=== PATIENT | female | born 1975 | race Caucasian/White ===

== ENCOUNTER 2017-11-08 10:53 | Inpatient (IN) | payer MEDICAID, OTHER ==
[~2017-11-08] VITALS: Ht 160 cm; Wt 68.5 kg
[~2017-11-08 10:53] MED LIST: ARIP2 PO; FLUO-191 PO; HALO5 PO
[2017-11-08] MEDS ORDERED: HALOPERIDOL LACTATE 5 MG/ML VIAL IM ONE (11:15)
[2017-11-08] MEDS ORDERED: LORazepam 2 MG/ML VIAL IM ONE (11:15)
[2017-11-08 11:34] LABS: ANION GAP 7 mmol/L (8-16); CALCIUM, TOTAL 9.3 mg/dL (8.8-10.5); CARBON DIOXIDE 28 mmol/L (22-29); CHLORIDE 102 mmol/L (98-107); CREATININE 0.88 mg/dL (0.60-1.30); GLOMERULAR FILTR. RATE CALC > 60 mL/min (>60); GLUCOSE,RANDOM 112 mg/dL (70-110); POTASSIUM 4.5 mmol/L (3.5-5.1); SODIUM SERUM 137 mmol/L (136-145); UREA NITROGEN, BLOOD 11 mg/dL (7-18)
[2017-11-08 11:41] LABS: ALANINE AMINOTRANSFERASE 29 U/L (12-78); ALBUMIN 3.9 g/dL (3.4-5.0); ALKALINE PHOSPHATASE 85 U/L (46-116); ASPARTATE AMINOTRANSFERASE 25 U/L (15-37); BILIRUBIN,TOTAL 0.1 mg/dL (0.1-1.0); TOTAL PROTEIN, SERUM 7.9 g/dL (6.4-8.2)
[2017-11-08 11:57] LABS: BASOPHILS % (AUTO) 0.4 % (0.0-2.0); HEMATOCRIT 38.4 % (36-46); HEMOGLOBIN 12.8 g/dL (12.0-16.0); LYMPHOCYTES % (AUTO) 20.6 % (22.0-44.0); MEAN CORPUSCULAR HEMOGLOBIN 27.9 pg (26.0-34.0); MEAN CORPUSCULAR HGB CONC 33.3 G/dL (31.0-37.0); MEAN CORPUSCULAR VOLUME 84 fL (80-100); MONOCYTES # (AUTO) 0.4 K/uL (0.1-1.0); MONOCYTES % (AUTO) 4.4 % (2.0-9.0); NEUTROPHILS # (AUTO) 7.1 K/uL (1.8-7.7); NEUTROPHILS % (AUTO) 73.6 % (40.0-70.0); PLATELET COUNT (AUTO) 328 K/uL (150-450); RED CELL DISTRIBUTION WIDTH 14.5 % (11.5-14.5)
[2017-11-08] MEDS ORDERED: HALOPERIDOL 5 MG TABLET PO PRN (12:30)
[2017-11-08] MEDS ORDERED: ZOLPIDEM TARTRATE 10 MG TABLET PO PRN (12:30)
[2017-11-08] MEDS ORDERED: IBUPROFEN 400 MG TABLET PO PRN (15:45)
[2017-11-08] MEDS ORDERED: ACETAMINOPHEN 325 MG TABLET PO PRN (15:45)
[2017-11-08 16:25] VITALS: BP 127/60
[2017-11-09 00:05] VITALS: BP 102/61
[2017-11-09 08:27] VITALS: BP 109/69
[2017-11-09 08:33] LABS: CHOL/HDL RATIO 2.3 (3.9-5.7); THYROID STIMULATING HORMONE 0.69 uIU/mL (0.36-3.74)
[2017-11-09] MEDS ORDERED: NICOTINE 21 MG/24 HOUR PATCH TD SCH (09:00)
[2017-11-09] MEDS ORDERED: ARIPiprazole 2 MG TABLET PO SCH (09:00)
[2017-11-09] MEDS: HALOPERIDOL 5 MG TABLET PO SCH (09:13)
[2017-11-09] MEDS: FLUoxetine HCL 20 MG CAPSULE PO SCH ×2 (09:13→16:17)
[2017-11-09] MEDS: ARIPiprazole 5 MG TABLET PO SCH (14:10)
[2017-11-09 16:20] VITALS: BP 112/80
[2017-11-10] MEDS: HALOPERIDOL 5 MG TABLET PO SCH (08:32)
[2017-11-10] MEDS: FLUoxetine HCL 20 MG CAPSULE PO SCH ×2 (08:32→16:49)
[2017-11-10] MEDS: ARIPiprazole 5 MG TABLET PO SCH (08:32)
[2017-11-10 09:40] VITALS: BP 101/62
[2017-11-10 16:57] VITALS: BP 110/65
[2017-11-11 06:49] VITALS: BP 121/68
[2017-11-11 08:58] VITALS: BP 115/70
[2017-11-11] MEDS: FLUoxetine HCL 20 MG CAPSULE PO SCH ×2 (09:56→16:37)
[2017-11-11] MEDS: HALOPERIDOL 5 MG TABLET PO SCH (09:56)
[2017-11-11] MEDS: ARIPiprazole 5 MG TABLET PO SCH (09:56)
[2017-11-11 18:25] VITALS: BP 107/76
[2017-11-12 06:34] VITALS: BP 100/56
[2017-11-12] MEDS: FLUoxetine HCL 20 MG CAPSULE PO SCH ×2 (09:26→16:49)
[2017-11-12] MEDS: ARIPiprazole 5 MG TABLET PO SCH (09:26)
[2017-11-12] MEDS: HALOPERIDOL 5 MG TABLET PO SCH (09:26)
[2017-11-12] MEDS ORDERED: DiphenhydrAMINE HCL 50 MG/ML VIAL IM ONE (09:45)
[2017-11-12] MEDS: BENZTROPINE MESYLATE 2 MG TABLET PO SCH ×2 (10:12→16:49)
[2017-11-12] MEDS: LORazepam 2 MG TABLET PO PRN (15:05)
[2017-11-12 17:47] VITALS: BP 102/67
[2017-11-13 06:25] VITALS: BP 113/56
[2017-11-13 08:02] VITALS: BP 110/61
[2017-11-13] MEDS: HALOPERIDOL 5 MG TABLET PO SCH (09:16)
[2017-11-13] MEDS: ARIPiprazole 5 MG TABLET PO SCH (09:17)
[2017-11-13] MEDS: FLUoxetine HCL 20 MG CAPSULE PO SCH ×2 (09:17→16:07)
[2017-11-13] MEDS: BENZTROPINE MESYLATE 2 MG TABLET PO SCH ×2 (09:17→16:07)
[2017-11-13] MEDS: LORazepam 2 MG TABLET PO PRN (09:31)
[2017-11-13 16:31] VITALS: BP 105/74
[2017-11-14] MEDS: LORazepam 2 MG TABLET PO PRN ×2 (00:30→09:35)
[2017-11-14] MEDS: HALOPERIDOL 5 MG TABLET PO SCH ×2 (00:30→09:34)
[2017-11-14 06:35] VITALS: BP 102/72
[2017-11-14] MEDS: ARIPiprazole 5 MG TABLET PO SCH (08:25)
[2017-11-14] MEDS: FLUoxetine HCL 20 MG CAPSULE PO SCH ×2 (08:25→17:51)
[2017-11-14] MEDS: BENZTROPINE MESYLATE 2 MG TABLET PO SCH ×2 (08:25→17:50)
[2017-11-14 08:40] VITALS: BP 109/66
[2017-11-14 16:00] VITALS: BP 119/82
[2017-11-14] MEDS ORDERED: DiphenhydrAMINE HCL 50 MG/ML VIAL ONE (18:26)
[2017-11-14] MEDS ORDERED: HALOPERIDOL LACTATE 5 MG/ML VIAL ONE (18:26)
[2017-11-14] MEDS ORDERED: LORazepam 2 MG/ML VIAL ONE (18:26)
[2017-11-14] MEDS ORDERED: LORazepam 2 MG/ML VIAL IM ONE (18:45)
[2017-11-14] MEDS ORDERED: DiphenhydrAMINE HCL 50 MG/ML VIAL IM ONE (18:45)
[2017-11-14] MEDS ORDERED: HALOPERIDOL LACTATE 5 MG/ML VIAL IM ONE (18:45)
[2017-11-14 19:40] VITALS: BP 111/77
[2017-11-15 06:45] VITALS: BP 106/68
[2017-11-15 08:42] VITALS: BP 105/64
[2017-11-15] MEDS ORDERED: BACITRACIN 28.4 GM OINTMENT TP SCH (09:00)
[2017-11-15] MEDS: ARIPiprazole 5 MG TABLET PO SCH (09:38)
[2017-11-15] MEDS: BENZTROPINE MESYLATE 2 MG TABLET PO SCH (09:38)
[2017-11-15] MEDS: FLUoxetine HCL 20 MG CAPSULE PO SCH (09:39)
[2017-11-15] MEDS ORDERED: FLUO-191 PO (11:05)
[2017-11-15] MEDS ORDERED: BENZ2TAB10 PO (11:05)
[2017-11-15] MEDS ORDERED: ARIP5TAB8 PO (11:05)
[2017-11-15] MEDS ORDERED: HALO5 PO (11:06)
== END 2017-11-15 13:00 | disposition home or self-care (01) | DRG 750 ==
LOC: EMS 10:55 → B2S 14:39 → B3A 11-14 17:28
PROVIDERS: ADMIT Psychiatry & Neurology Psychiatry; ATTEND Psychiatry & Neurology Psychiatry
DX: F20.0 Paranoid schizophrenia (principal); R45.851 Suicidal ideations; Z91.14 Patient's other noncompliance with medication regimen; I10 Essential (primary) hypertension; F32.9 Major depressive disorder, single episode, unspecified; F10.10 Alcohol abuse, uncomplicated; F19.10 Other psychoactive substance abuse, uncomplicated; R00.0 Tachycardia, unspecified; F15.90 Other stimulant use, unspecified, uncomplicated; Z79.899 Other long term (current) drug therapy; Z88.6 Allergy status to analgesic agent; Z88.2 Allergy status to sulfonamides; Z88.0 Allergy status to penicillin; Z87.442 Personal history of urinary calculi; Z71.41 Alcohol abuse counseling and surveillance of alcoholic; Z71.51 Drug abuse counseling and surveillance of drug abuser
CPT/HCPCS: 84443; 96372; 99285; G0480; J1200; J1630; J2060

== ENCOUNTER 2017-11-12 11:31 | Emergency (ER) | payer MEDICAID, OTHER ==
[~2017-11-12] VITALS: Ht 165.1 cm; Wt 59.1 kg
[2017-11-12 11:45] VITALS: BP 108/53
[2017-11-12] MEDS ORDERED: TraMADol HCL 50 MG TABLET PO ONE (12:30)
[2017-11-12] MEDS ORDERED: KETOROLAC TROMETHAMINE 60 MG/2 ML VIAL IM ONE (12:30)
== END 2017-11-12 13:42 | disposition home or self-care (01) ==
LOC: EMS 11:32
DX: R07.89 Other chest pain (principal); F20.9 Schizophrenia, unspecified; F32.9 Major depressive disorder, single episode, unspecified; F17.210 Nicotine dependence, cigarettes, uncomplicated; Z87.442 Personal history of urinary calculi; Z88.0 Allergy status to penicillin; Z88.2 Allergy status to sulfonamides; Z88.5 Allergy status to narcotic agent; Z79.899 Other long term (current) drug therapy; Z71.6 Tobacco abuse counseling
CPT/HCPCS: 93005; 96372; 99283; 99406; J1885

== ENCOUNTER 2018-01-20 20:32 | Emergency (ER) | payer OTHER ==
[~2018-01-20] VITALS: Ht 157.5 cm; Wt 50.0 kg
[~2018-01-20 20:32] MED LIST changes: -ARIP2 PO; +ARIP5TAB8 PO; +BENZ2TAB10 PO; -HALO5 PO; +HALO5TAB2 PO
[2018-01-20] MEDS ORDERED: ZIPR20CA2 PO (23:24)
[2018-01-21 02:21] LABS: BASOPHILS % (AUTO) 0.5 % (0.0-2.0); EOSINOPHILS % (AUTO) 1.8 % (1.0-6.0); HEMATOCRIT 38.1 % (36-46); HEMOGLOBIN 12.7 g/dL (12.0-16.0); LYMPHOCYTES % (AUTO) 35.9 % (22.0-44.0); MEAN CORPUSCULAR HGB CONC 33.5 G/dL (31.0-37.0); MEAN CORPUSCULAR VOLUME 84 fL (80-100); MONOCYTES # (AUTO) 0.3 K/uL (0.1-1.0); MONOCYTES % (AUTO) 4.1 % (2.0-9.0); NEUTROPHILS # (AUTO) 4.8 K/uL (1.8-7.7); NEUTROPHILS % (AUTO) 57.7 % (40.0-70.0); PLATELET COUNT (AUTO) 305 K/uL (150-450); RED BLOOD CELL COUNT(AUTO) 4.54 MIL/uL (4.00-5.20); RED CELL DISTRIBUTION WIDTH 14.6 % (11.5-14.5)
[2018-01-21 02:29] LABS: ANION GAP 7 mmol/L (8-16); CALCIUM, TOTAL 8.9 mg/dL (8.8-10.5); CARBON DIOXIDE 28 mmol/L (22-29); CHLORIDE 104 mmol/L (98-107); CREATININE 0.91 mg/dL (0.60-1.30); GLOMERULAR FILTR. RATE CALC > 60 mL/min (>60); GLUCOSE,RANDOM 99 mg/dL (70-110); POTASSIUM 4.4 mmol/L (3.5-5.1); SODIUM SERUM 139 mmol/L (136-145); UREA NITROGEN, BLOOD 9 mg/dL (7-18)
[2018-01-21 02:35] LABS: ALANINE AMINOTRANSFERASE 31 U/L (12-78); ALBUMIN 3.6 g/dL (3.4-5.0); ALKALINE PHOSPHATASE 83 U/L (46-116); ASPARTATE AMINOTRANSFERASE 24 U/L (15-37); BILIRUBIN,TOTAL 0.3 mg/dL (0.1-1.0)
[2018-01-21] MEDS ORDERED: LORazepam 2 MG TABLET PO ONE (03:15)
[2018-01-21 04:19] VITALS: BP 109/66
== END 2018-01-21 04:22 | disposition home or self-care (01) ==
LOC: EMS 20:32
DX: F32.9 Major depressive disorder, single episode, unspecified (principal); F41.9 Anxiety disorder, unspecified; F20.9 Schizophrenia, unspecified; F12.90 Cannabis use, unspecified, uncomplicated; F19.90 Other psychoactive substance use, unspecified, uncomplicated; Z87.891 Personal history of nicotine dependence; Z88.0 Allergy status to penicillin; Z88.2 Allergy status to sulfonamides; Z88.5 Allergy status to narcotic agent
CPT/HCPCS: 80053; 85025; 99284; G0480

== ENCOUNTER 2018-02-16 01:32 | Inpatient (IN) | payer MEDICAID, OTHER ==
[~2018-02-16] VITALS: Ht 152.4 cm; Wt 63.6 kg
[~2018-02-16 01:32] MED LIST changes: -BENZ2TAB10 PO; +GABA-529 PO; -HALO5TAB2 PO
[2018-02-16] MEDS ORDERED: LORazepam 2 MG/ML VIAL ONE (02:20)
[2018-02-16] MEDS ORDERED: DiphenhydrAMINE HCL 50 MG/ML VIAL ONE (02:20)
[2018-02-16] MEDS ORDERED: HALOPERIDOL LACTATE 5 MG/ML VIAL ONE (02:20)
[2018-02-16 02:23] LABS: AMPHET/METH SCREEN,URINE POSITIVE (NEGATIVE); BARBITURATE SCREEN, URINE NEGATIVE (NEGATIVE); BENZODIAZEPINES SCREEN,URINE NEGATIVE (NEGATIVE); CANNABINOID SCREEN,URINE NEGATIVE (NEGATIVE); COCAINE SCREEN,URINE NEGATIVE (NEGATIVE); METHADONE SCREEN, URINE NEGATIVE (NEGATIVE); OPIATE SCREEN,URINE NEGATIVE (NEGATIVE); PHENCYCLIDINE SCREEN,URINE NEGATIVE (NEGATIVE)
[2018-02-16] MEDS ORDERED: HALOPERIDOL LACTATE 5 MG/ML VIAL IM ONE (02:30)
[2018-02-16] MEDS ORDERED: LORazepam 2 MG/ML VIAL IM ONE (02:30)
[2018-02-16] MEDS ORDERED: DiphenhydrAMINE HCL 50 MG/ML VIAL IM ONE (02:30)
[2018-02-16] MEDS ORDERED: ZOLPIDEM TARTRATE 10 MG TABLET PO PRN (03:15)
[2018-02-16] MEDS ORDERED: HALOPERIDOL 5 MG TABLET PO PRN (03:15)
[2018-02-16 04:27] LABS: BASOPHILS % (AUTO) 0.5 % (0.0-2.0); EOSINOPHILS % (AUTO) 0.9 % (1.0-6.0); HEMATOCRIT 34.9 % (36-46); HEMOGLOBIN 11.8 g/dL (12.0-16.0); LYMPHOCYTES # (AUTO) 1.6 K/uL (1.0-4.8); LYMPHOCYTES % (AUTO) 17.1 % (22.0-44.0); MEAN CORPUSCULAR HEMOGLOBIN 28.6 pg (26.0-34.0); MEAN CORPUSCULAR HGB CONC 33.9 G/dL (31.0-37.0); MEAN CORPUSCULAR VOLUME 85 fL (80-100); MONOCYTES # (AUTO) 0.4 K/uL (0.1-1.0); MONOCYTES % (AUTO) 4.8 % (2.0-9.0); NEUTROPHILS # (AUTO) 7.2 K/uL (1.8-7.7); NEUTROPHILS % (AUTO) 76.7 % (40.0-70.0); PLATELET COUNT (AUTO) 276 K/uL (150-450); RED BLOOD CELL COUNT(AUTO) 4.13 MIL/uL (4.00-5.20); RED CELL DISTRIBUTION WIDTH 14.5 % (11.5-14.5)
[2018-02-16 04:39] LABS: ANION GAP 9 mmol/L (8-16); CALCIUM, TOTAL 8.4 mg/dL (8.8-10.5); CARBON DIOXIDE 26 mmol/L (22-29); CHLORIDE 106 mmol/L (98-107); CREATININE 0.89 mg/dL (0.60-1.30); GLOMERULAR FILTR. RATE CALC > 60 mL/min (>60); GLUCOSE,RANDOM 98 mg/dL (70-110); POTASSIUM 3.2 mmol/L (3.5-5.1); SODIUM SERUM 141 mmol/L (136-145); UREA NITROGEN, BLOOD 12 mg/dL (7-18)
[2018-02-16 04:45] LABS: ALANINE AMINOTRANSFERASE 27 U/L (12-78); ALBUMIN 3.3 g/dL (3.4-5.0); ALKALINE PHOSPHATASE 86 U/L (46-116); ASPARTATE AMINOTRANSFERASE 29 U/L (15-37); BILIRUBIN,TOTAL 0.1 mg/dL (0.1-1.0); TOTAL PROTEIN, SERUM 6.3 g/dL (6.4-8.2)
[2018-02-16] MEDS ORDERED: POTASSIUM CHLORIDE 10% 40 MEQ/30 ML LIQUID UDCUP PO ONE (04:45)
[2018-02-16 07:00] VITALS: BP 109/67
[2018-02-16] MEDS ORDERED: NICOTINE 14 MG/24 HOUR PATCH TD PRN (07:30)
[2018-02-16] MEDS ORDERED: MAGNESIUM HYDROXIDE SUSPENSION 30 ML UDCUP PO PRN (07:30)
[2018-02-16] MEDS ORDERED: ACETAMINOPHEN 325 MG TABLET PO PRN (07:30)
[2018-02-16] MEDS ORDERED: ONDANSETRON HCL 4 MG TABLET PO PRN (07:30)
[2018-02-16] MEDS ORDERED: PETROLATUM,WHITE 71 GM JELLY TP PRN (07:30)
[2018-02-16] MEDS ORDERED: LOPERAMIDE HCL 2 MG CAPSULE PO PRN (07:30)
[2018-02-16] MEDS ORDERED: ALBUTEROL SULFATE HFA 90 MCG/PUFF 8 GM INHALER IH PRN (07:30)
[2018-02-16] MEDS ORDERED: DOCUSATE SODIUM 100 MG CAPSULE PO PRN (07:30)
[2018-02-16] MEDS ORDERED: CloNIDine HCL 0.1 MG TABLET PO PRN (07:30)
[2018-02-16] MEDS ORDERED: MAG HYDROX/AL HYDROX/SIMETH ES 30 ML SUSPENSION UDCUP PO PRN (07:30)
[2018-02-16] MEDS ORDERED: IBUPROFEN 400 MG TABLET PO PRN (07:30)
[2018-02-16] MEDS ORDERED: GuaiFENesin/D-METHORPHAN [SUGAR-FREE] 200-20MG/10 ML SYRUP UDCUP PO PRN (07:30)
[2018-02-16 08:25] VITALS: BP 102/50
[2018-02-16] MEDS ORDERED: FLUO-191 PO (08:58)
[2018-02-16] MEDS ORDERED: QUEtiapine FUMARATE 100 MG TABLET PO PRN (09:00)
[2018-02-16] MEDS: ARIPiprazole 5 MG TABLET PO SCH (09:29)
[2018-02-16] MEDS: FLUoxetine HCL 20 MG CAPSULE PO SCH (09:29)
[2018-02-16] MEDS: FERROUS SULFATE 325 MG EC TABLET PO SCH ×2 (12:28→16:36)
[2018-02-16 16:35] VITALS: BP 108/66
[2018-02-16] MEDS ORDERED: GABAPENTIN 100 MG CAPSULE PO SCH (21:00)
[2018-02-17] MEDS: FERROUS SULFATE 325 MG EC TABLET PO SCH ×3 (06:40→16:19)
[2018-02-17 07:14] VITALS: BP 110/78
[2018-02-17 08:42] VITALS: BP 111/60
[2018-02-17] MEDS: GABAPENTIN 100 MG CAPSULE PO SCH ×3 (09:09→20:23)
[2018-02-17] MEDS: ARIPiprazole 5 MG TABLET PO SCH (09:09)
[2018-02-17] MEDS: FLUoxetine HCL 20 MG CAPSULE PO SCH (09:09)
[2018-02-17 16:35] VITALS: BP 119/67
[2018-02-18] MEDS: FERROUS SULFATE 325 MG EC TABLET PO SCH ×3 (06:39→16:57)
[2018-02-18 06:47] VITALS: BP 105/62
[2018-02-18 08:22] VITALS: BP 100/57
[2018-02-18] MEDS: GABAPENTIN 100 MG CAPSULE PO SCH ×3 (08:45→20:12)
[2018-02-18] MEDS: ARIPiprazole 5 MG TABLET PO SCH (08:45)
[2018-02-18] MEDS: FLUoxetine HCL 20 MG CAPSULE PO SCH (08:45)
[2018-02-18] MEDS ORDERED: POTASSIUM CHLORIDE 20 MEQ ER TABLET PO ONE (10:15)
[2018-02-18] MEDS: LORazepam 2 MG TABLET PO PRN (12:05)
[2018-02-18 16:27] VITALS: BP 111/62
[2018-02-19 00:15] VITALS: BP 120/72
[2018-02-19] MEDS: FERROUS SULFATE 325 MG EC TABLET PO SCH ×3 (06:38→16:21)
[2018-02-19 08:10] VITALS: BP 132/79
[2018-02-19] MEDS: GABAPENTIN 100 MG CAPSULE PO SCH ×3 (08:41→20:08)
[2018-02-19] MEDS: FLUoxetine HCL 20 MG CAPSULE PO SCH (08:42)
[2018-02-19] MEDS: ARIPiprazole 5 MG TABLET PO SCH (08:42)
[2018-02-19 08:54] LABS: HEMOGLOBIN A1C 5.1 % (4.5-6.2)
[2018-02-19 09:11] LABS: THYROID STIMULATING HORMONE 0.47 uIU/mL (0.36-3.74)
[2018-02-19 09:23] LABS: CHOL/HDL RATIO 3.3 (3.9-5.7)
[2018-02-19] MEDS: LORazepam 2 MG TABLET PO PRN (14:18)
[2018-02-19 16:00] VITALS: BP 100/60
[2018-02-20 06:49] VITALS: BP 108/75
[2018-02-20] MEDS: FERROUS SULFATE 325 MG EC TABLET PO SCH ×2 (06:58→12:13)
[2018-02-20] MEDS: GABAPENTIN 100 MG CAPSULE PO SCH (08:19)
[2018-02-20] MEDS: ARIPiprazole 5 MG TABLET PO SCH (08:19)
[2018-02-20] MEDS: FLUoxetine HCL 20 MG CAPSULE PO SCH (08:20)
[2018-02-20 08:21] VITALS: BP 126/69
[2018-02-20] MEDS ORDERED: FERR-89 PO (08:35)
[2018-02-20] MEDS ORDERED: GABA-529 PO (08:35)
== END 2018-02-20 13:15 | disposition home or self-care (01) | DRG 750 ==
LOC: EMS 01:32 → B3A 05:30
PROVIDERS: ADMIT Psychiatry & Neurology Psychiatry
DX: F25.1 Schizoaffective disorder, depressive type (principal); R45.851 Suicidal ideations; F15.20 Other stimulant dependence, uncomplicated; E87.6 Hypokalemia; D64.9 Anemia, unspecified; F17.210 Nicotine dependence, cigarettes, uncomplicated; F41.9 Anxiety disorder, unspecified; Z78.1 Physical restraint status; Z79.899 Other long term (current) drug therapy; Z87.442 Personal history of urinary calculi; Z88.6 Allergy status to analgesic agent; Z88.0 Allergy status to penicillin; Z88.2 Allergy status to sulfonamides
CPT/HCPCS: 83036; 84132; 84443; 87081; 96372; 99291; 99406; G0480; J1200; J1630; J2060

== ENCOUNTER 2023-03-28 05:17 | Emergency (ER) | payer MEDICAID, OTHER ==
[~2023-03-28] VITALS: Ht 154.9 cm; Wt 68.2 kg
[~2023-03-28 05:17] MED LIST changes: +ARIP5TAB37 PO; -ARIP5TAB8 PO; +FERR325T27 PO; +FLUO-177 PO; -FLUO-191 PO; +GABA-1216 PO; -GABA-529 PO
[2023-03-28] MEDS ORDERED: GABAPENTIN 300 MG CAPSULE PO ONE (05:30)
[2023-03-28] MEDS ORDERED: HydrOXYzine PAMOATE 25 MG CAPSULE PO ONE (05:30)
[2023-03-28 05:56] LABS: BASOPHILS % (AUTO) 0.4 % (0.0-2.0); EOSINOPHILS % (AUTO) 2.7 % (1.0-6.0); HEMOGLOBIN 11.8 g/dL (12.0-16.0); LYMPHOCYTES # (AUTO) 2.4 K/uL (1.0-4.8); LYMPHOCYTES % (AUTO) 24.9 % (22.0-44.0); MEAN CORPUSCULAR HEMOGLOBIN 27.7 pg (26.0-34.0); MEAN CORPUSCULAR HGB CONC 32.7 G/dL (31.0-37.0); MEAN CORPUSCULAR VOLUME 85 fL (80-100); MONOCYTES # (AUTO) 0.5 K/uL (0.1-1.0); MONOCYTES % (AUTO) 5.4 % (2.0-9.0); NEUTROPHILS # (AUTO) 6.3 K/uL (1.8-7.7); NEUTROPHILS % (AUTO) 66.6 % (40.0-70.0); PLATELET COUNT (AUTO) 319 K/uL (150-450); RED BLOOD CELL COUNT(AUTO) 4.26 MIL/uL (4.00-5.20); RED CELL DISTRIBUTION WIDTH 15.6 % (11.5-14.5); WHITE BLOOD COUNT (AUTO) 9.5 K/uL (4.5-11.0)
[2023-03-28 06:04] LABS: ANION GAP 5 mmol/L (8-16); CALCIUM, TOTAL 8.5 mg/dL (8.8-10.5); CARBON DIOXIDE 29 mmol/L (22-29); CHLORIDE 103 mmol/L (98-107); CREATININE 0.68 mg/dL (0.60-1.30); GLOMERULAR FILTR. RATE CALC > 60 mL/min (>60); GLUCOSE,RANDOM 101 mg/dL (70-110); POTASSIUM 4.4 mmol/L (3.5-5.1); SODIUM SERUM 137 mmol/L (136-145); UREA NITROGEN, BLOOD 8 mg/dL (7-18)
[2023-03-28 06:07] LABS: COVID AG,FIA SOURCE NASAL SWAB
[2023-03-28 06:09] LABS: ALANINE AMINOTRANSFERASE 45 U/L (12-78); ALBUMIN 2.9 g/dL (3.4-5.0); ALKALINE PHOSPHATASE 97 U/L (46-116); ASPARTATE AMINOTRANSFERASE 33 U/L (15-37); BILIRUBIN,TOTAL 0.2 mg/dL (0.1-1.0); TOTAL PROTEIN, SERUM 6.3 g/dL (6.4-8.2)
[2023-03-28 06:15] LABS: ALCOHOL, BLOOD (SERUM) < 3 mg/dL (0-10)
[2023-03-28 06:33] LABS: ALCOHOL, URINE DRUG SCREEN NEGATIVE (NEGATIVE); AMPHET/METH SCREEN,URINE POSITIVE (NEGATIVE); BARBITURATE SCREEN, URINE NEGATIVE (NEGATIVE); BENZODIAZEPINES SCREEN,URINE NEGATIVE (NEGATIVE); CANNABINOID SCREEN,URINE NEGATIVE (NEGATIVE); COCAINE SCREEN,URINE NEGATIVE (NEGATIVE); METHADONE SCREEN, URINE NEGATIVE (NEGATIVE); OPIATE SCREEN,URINE NEGATIVE (NEGATIVE); PHENCYCLIDINE SCREEN,URINE NEGATIVE (NEGATIVE)
[2023-03-28 06:43] LABS: SARS-COV2 (COVID) ANTIGEN,FIA Negative (Negative)
[2023-03-28 09:04] VITALS: BP 107/64; PULSE 81; RESP 16; TEMP 98.8
== END 2023-03-28 10:25 | disposition home or self-care (01) ==
LOC: EMS 05:20
DX: F25.1 Schizoaffective disorder, depressive type (principal); Z20.822 Contact with and (suspected) exposure to COVID-19
CPT/HCPCS: 99284; 87426; 80053; 84703; 85025; 36415; 80307; G0480

== ENCOUNTER 2023-03-28 17:40 | Emergency (ER) | payer OTHER ==
[~2023-03-28] VITALS: Ht 154.9 cm; Wt 68.1 kg
[2023-03-28 18:14] VITALS: BP 111/79; PULSE 101; RESP 20; TEMP 98.4
== END 2023-03-28 21:00 | disposition left against medical advice (07) ==
LOC: EMS 17:41
DX: R45.851 Suicidal ideations (principal); Z53.21 Procedure and treatment not carried out due to patient leaving prior to being seen by health care provider
CPT/HCPCS: 99281; Z7502

== ENCOUNTER 2023-03-29 17:40 | Emergency (ER) | payer OTHER ==
[~2023-03-29] VITALS: Ht 154.9 cm; Wt 63.6 kg
[2023-03-29 17:42] VITALS: TEMP 98.4
[2023-03-29] MEDS ORDERED: SODIUM CHLORIDE 0.9% 1,000 ML IV ONE (19:15)
[2023-03-29] MEDS ORDERED: HYDROCODONE/ACETAMINOPHEN 5-325 MG TABLET PO ONE (19:15)
[2023-03-29 20:06] LABS: BASOPHILS % (AUTO) 0.4 % (0.0-2.0); EOSINOPHILS % (AUTO) 2.7 % (1.0-6.0); HEMATOCRIT 37.7 % (36-46); HEMOGLOBIN 12.2 g/dL (12.0-16.0); LYMPHOCYTES # (AUTO) 2.7 K/uL (1.0-4.8); LYMPHOCYTES % (AUTO) 22.3 % (22.0-44.0); MEAN CORPUSCULAR HEMOGLOBIN 27.5 pg (26.0-34.0); MEAN CORPUSCULAR HGB CONC 32.4 G/dL (31.0-37.0); MEAN CORPUSCULAR VOLUME 85 fL (80-100); MONOCYTES # (AUTO) 0.4 K/uL (0.1-1.0); MONOCYTES % (AUTO) 3.2 % (2.0-9.0); NEUTROPHILS # (AUTO) 8.8 K/uL (1.8-7.7); NEUTROPHILS % (AUTO) 71.4 % (40.0-70.0); PLATELET COUNT (AUTO) 351 K/uL (150-450); RED BLOOD CELL COUNT(AUTO) 4.45 MIL/uL (4.00-5.20); RED CELL DISTRIBUTION WIDTH 15.2 % (11.5-14.5); WHITE BLOOD COUNT (AUTO) 12.3 K/uL (4.5-11.0)
[2023-03-29 20:18] LABS: ANION GAP 9 mmol/L (8-16); CARBON DIOXIDE 28 mmol/L (22-29); CHLORIDE 105 mmol/L (98-107); CREATININE 0.58 mg/dL (0.60-1.30); GLOMERULAR FILTR. RATE CALC > 60 mL/min (>60); GLUCOSE,RANDOM 93 mg/dL (70-110); POTASSIUM 3.8 mmol/L (3.5-5.1); SODIUM SERUM 142 mmol/L (136-145); UREA NITROGEN, BLOOD 15 mg/dL (7-18)
[2023-03-29 20:25] LABS: ALANINE AMINOTRANSFERASE 34 U/L (12-78); ALKALINE PHOSPHATASE 106 U/L (46-116); ASPARTATE AMINOTRANSFERASE 18 U/L (15-37); BILIRUBIN,TOTAL 0.1 mg/dL (0.1-1.0); TOTAL PROTEIN, SERUM 6.6 g/dL (6.4-8.2)
[2023-03-29] MEDS ORDERED: DiphenhydrAMINE HCL 50 MG/ML VIAL IVP ONE (20:30)
[2023-03-29] MEDS ORDERED: KETOROLAC TROMETHAMINE 30 MG/ML VIAL IVP ONE (20:30)
[2023-03-29] MEDS ORDERED: METOCLOPRAMIDE HCL 5 MG/ML 2 ML VIAL IVP ONE (20:30)
[2023-03-29 22:15] VITALS: BP 106/68; PULSE 94; RESP 16
== END 2023-03-29 22:29 | disposition home or self-care (01) ==
LOC: EMS 17:42
DX: R51.9 Headache, unspecified (principal); M79.602 Pain in left arm; F41.9 Anxiety disorder, unspecified; F31.9 Bipolar disorder, unspecified; F20.9 Schizophrenia, unspecified; F17.210 Nicotine dependence, cigarettes, uncomplicated; F12.90 Cannabis use, unspecified, uncomplicated; F15.90 Other stimulant use, unspecified, uncomplicated; Z88.0 Allergy status to penicillin; Z88.2 Allergy status to sulfonamides; Z88.6 Allergy status to analgesic agent
CPT/HCPCS: 99285; 96374; 70450; 96375; 96361; 80053; 84703; 85025; 36415; 73030; G0480; J1200; J1885; J2765; J7030

== ENCOUNTER 2024-12-26 14:51 | Inpatient (IN) | payer MEDICAID, OTHER ==
[~2024-12-26] VITALS: Ht 152.4 cm; Wt 74.2 kg
[2024-12-26 15:16] LABS: COVID AG,FIA SOURCE NASAL SWAB
[2024-12-26] MEDS ORDERED: DIVA-112 PO (15:24)
[2024-12-26] MEDS ORDERED: LUMA21CA PO (15:24)
[2024-12-26] MEDS ORDERED: GABA-1181 PO (15:24)
[2024-12-26] MEDS ORDERED: OLAN10TA74 PO (15:24)
[2024-12-26] MEDS ORDERED: HYDR-4061 PO (15:24)
[2024-12-26] MEDS: OLANZapine 10 MG TABLET PO ONE (15:35)
[2024-12-26] MEDS: LORazepam 1 MG TABLET PO ONE (15:35)
[2024-12-26 15:36] LABS: BASOPHILS % (AUTO) 0.3 % (0.0-2.0); EOSINOPHILS % (AUTO) 1.5 % (1.0-6.0); HEMATOCRIT 36.9 % (36-46); HEMOGLOBIN 12.3 g/dL (12.0-16.0); LYMPHOCYTES # (AUTO) 1.8 K/uL (1.0-4.8); LYMPHOCYTES % (AUTO) 37.3 % (22.0-44.0); MEAN CORPUSCULAR HEMOGLOBIN 28.4 pg (26.0-34.0); MEAN CORPUSCULAR HGB CONC 33.2 G/dL (31.0-37.0); MEAN CORPUSCULAR VOLUME 85 fL (80-100); MONOCYTES # (AUTO) 0.4 K/uL (0.1-1.0); MONOCYTES % (AUTO) 7.8 % (2.0-9.0); NEUTROPHILS # (AUTO) 2.6 K/uL (1.8-7.7); NEUTROPHILS % (AUTO) 53.1 % (40.0-70.0); PLATELET COUNT (AUTO) 302 K/uL (150-450); RED BLOOD CELL COUNT(AUTO) 4.32 MIL/uL (4.00-5.20); RED CELL DISTRIBUTION WIDTH 14.2 % (11.5-14.5); WHITE BLOOD COUNT (AUTO) 4.9 K/uL (4.5-11.0)
[2024-12-26 15:44] LABS: ACETAMINOPHEN < 2 mcg/mL (10-30)
[2024-12-26 15:48] LABS: ALCOHOL, BLOOD (SERUM) < 3 mg/dL (0-10)
[2024-12-26 15:51] LABS: SALICYLATE 0.9 mg/dL (2.8-20.0)
[2024-12-26 15:58] LABS: ANION GAP 5 mmol/L (8-16); CALCIUM, TOTAL 8.6 mg/dL (8.8-10.5); CARBON DIOXIDE 29 mmol/L (22-29); CHLORIDE 106 mmol/L (98-107); CREATININE 0.82 mg/dL (0.60-1.30); GLOMERULAR FILTR. RATE CALC > 60 mL/min (>60); GLUCOSE,RANDOM 90 mg/dL (70-110); POTASSIUM 3.5 mmol/L (3.5-5.1); SODIUM SERUM 140 mmol/L (136-145); UREA NITROGEN, BLOOD 9 mg/dL (7-18)
[2024-12-26 16:03] LABS: CREATINE KINASE, TOTAL ONLY 89 U/L (26-192)
[2024-12-26 16:04] LABS: SARS-COV2 (COVID) ANTIGEN,FIA Negative (Negative)
[2024-12-26 16:07] LABS: TROPONIN I-HIGH SENSITIVITY 5 ng/L (<51)
[2024-12-26 16:41] LABS: APPEARANCE,URINE CLEAR (CLEAR); BILIRUBIN,URINE NEGATIVE (NEGATIVE); COLOR,URINE YELLOW (YELLOW); GLUCOSE, URINE (UA) NEGATIVE (NEGATIVE); KETONES,URINE NEGATIVE (NEGATIVE); LEUKOCYTE ESTERASE ,URINE TRACE (NEGATIVE); NITRATE,URINE NEGATIVE (NEGATIVE); OCCULT BLOOD,URINE NEGATIVE (NEGATIVE); PROTEIN,URINE NEGATIVE (NEGATIVE); SPECIFIC GRAVITIY, URINE 1.021 (1.003-1.030); UROBILINOGEN,URINE <=1.0 mg/dL (<=1.0)
[2024-12-26 16:48] LABS: ALCOHOL, URINE DRUG SCREEN NEGATIVE (NEGATIVE); AMPHET/METH SCREEN,URINE POSITIVE (NEGATIVE); BARBITURATE SCREEN, URINE NEGATIVE (NEGATIVE); BENZODIAZEPINES SCREEN,URINE NEGATIVE (NEGATIVE); CANNABINOID SCREEN,URINE NEGATIVE (NEGATIVE); COCAINE SCREEN,URINE NEGATIVE (NEGATIVE); METHADONE SCREEN, URINE NEGATIVE (NEGATIVE); OPIATE SCREEN,URINE NEGATIVE (NEGATIVE); PHENCYCLIDINE SCREEN,URINE NEGATIVE (NEGATIVE)
[2024-12-26 16:58] LABS: BACTERIA,URINE Rare /HPF (None Seen); RBC,URINE 0-2 /HPF (0-2); SQUAMOUS EPITHELIAL CELL,UR Few /LPF (None Seen)
[2024-12-26] MEDS ORDERED: ZOLPIDEM TARTRATE 10 MG TABLET PO PRN (21:45)
[2024-12-27 00:31] VITALS: BP 112/80; PULSE 66; RESP 18; TEMP 98; O2SAT 98
[2024-12-27 00:32] VITALS: BP 112/80; PULSE 66; RESP 18; TEMP 98; O2SAT 98
[2024-12-27] MEDS ORDERED: MAGNESIUM HYDROXIDE SUSPENSION 30 ML UDCUP PO PRN (05:45)
[2024-12-27] MEDS ORDERED: CloNIDine HCL 0.1 MG TABLET PO PRN (05:45)
[2024-12-27] MEDS ORDERED: IBUPROFEN 400 MG TABLET PO PRN (05:45)
[2024-12-27] MEDS ORDERED: ALBUTEROL SULFATE HFA 90 MCG/PUFF 8 GM INHALER IH PRN (05:45)
[2024-12-27] MEDS ORDERED: ONDANSETRON 4 MG TABLET PO PRN (05:45)
[2024-12-27] MEDS ORDERED: MAG HYDROX/ALUMINUM HYD/SIMETH ES 30 ML SUSPENSION UDCUP PO PRN (05:45)
[2024-12-27] MEDS ORDERED: LOPERAMIDE HCL 2 MG CAPSULE PO PRN (05:45)
[2024-12-27] MEDS ORDERED: NICOTINE 14 MG/24 HOUR PATCH TD PRN (05:45)
[2024-12-27] MEDS ORDERED: ACETAMINOPHEN 325 MG TABLET PO PRN (05:45)
[2024-12-27] MEDS ORDERED: GuaiFENesin/D-METHORPHAN [SUGAR-FREE] 200-20MG/10 ML SYRUP UDCUP PO PRN (05:45)
[2024-12-27] MEDS ORDERED: PETROLATUM,WHITE 28 GM JELLY TP PRN (05:45)
[2024-12-27] MEDS ORDERED: DOCUSATE SODIUM 100 MG CAPSULE PO PRN (05:45)
[2024-12-27 08:12] VITALS: RESP 16
[2024-12-27] MEDS: haloperidoL 5 MG TABLET PO PRN (08:55)
[2024-12-27] MEDS: LORazepam 2 MG TABLET PO PRN (08:55)
[2024-12-27] MEDS: OLANZapine 10 MG TABLET PO SCH (15:04)
[2024-12-27] MEDS: PALIPERIDONE PALMITATE 234 MG/1.5 ML SYRINGE IM ONE (16:00)
[2024-12-27 20:27] VITALS: BP 107/62; PULSE 92; RESP 17; TEMP 97.7; O2SAT 99
[2024-12-28 08:31] LABS: HEMOGLOBIN A1C 5.4 % (3.8-5.6)
[2024-12-28 08:47] LABS: CHOL/HDL RATIO 2.6 (3.9-5.7); THYROID STIMULATING HORMONE 1.09 uIU/mL (0.36-3.74)
[2024-12-28 18:10] VITALS: BP 105/62; PULSE 84; RESP 17; TEMP 97.2; O2SAT 99
[2024-12-28 20:54] VITALS: BP 106/88; PULSE 88; RESP 17; TEMP 97.6; O2SAT 96
[2024-12-29 08:31] VITALS: BP 100/62; PULSE 69; RESP 16; TEMP 97.6; O2SAT 98
[2024-12-29] MEDS: CIPROFLOXACIN HCL 250 MG TABLET PO SCH (09:00)
[2024-12-29] MEDS ORDERED: PALI234D IM (16:18)
[2024-12-29] MEDS ORDERED: CIPR250T6 PO (16:19)
[2025-01-24] MEDS ORDERED: PALIPERIDONE PALMITATE 234 MG/1.5 ML SYRINGE IM SCH (09:00)
== END 2024-12-29 16:58 | DRG 750 ==
LOC: EMS 14:51 → B3A 23:37
PROVIDERS: ADMIT Psychiatry & Neurology Child & Adolescent Psychiatry; ATTEND Psychiatry & Neurology Child & Adolescent Psychiatry
PROC: GZ56ZZZ Individual Psychotherapy, Supportive (ICD-10-PCS; principal; 2024-12-26)
DX: F25.1 Schizoaffective disorder, depressive type (principal); R45.851 Suicidal ideations; F15.10 Other stimulant abuse, uncomplicated; Z20.822 Contact with and (suspected) exposure to COVID-19; G47.00 Insomnia, unspecified; N39.0 Urinary tract infection, site not specified; T50.992A Poisoning by other drugs, medicaments and biological substances, intentional self-harm, initial encounter; Y92.89 Other specified places as the place of occurrence of the external cause; Z87.891 Personal history of nicotine dependence; Z88.5 Allergy status to narcotic agent; Z88.2 Allergy status to sulfonamides; Z88.0 Allergy status to penicillin
CPT/HCPCS: 80048; 80061; 80307; 81001; 82550; 83036; 84443; 84484; 84703; 85025; 93005; 99285; G0480; G0481

== ENCOUNTER 2025-01-06 07:18 | Emergency (ER) | payer MEDICAID, OTHER ==
[~2025-01-06] VITALS: Ht 152.4 cm; Wt 67.3 kg
[~2025-01-06 07:18] MED LIST changes: -ARIP5TAB37 PO; +CIPR250T6 PO; -FERR325T27 PO; -FLUO-177 PO; -GABA-1216 PO; +OLAN10TA74 PO; +PALI234D IM
[2025-01-06 07:30] VITALS: TEMP 97.7
[2025-01-06] MEDS ORDERED: IOHEXOL 350 MG/ML 100 ML VIAL ONE (07:36)
[2025-01-06] MEDS ORDERED: SODIUM CHLORIDE 0.9% 100 ML ONE (07:37)
[2025-01-06 07:53] LABS: BASOPHILS % (AUTO) 0.3 % (0.0-2.0); EOSINOPHILS % (AUTO) 1.9 % (1.0-6.0); HEMATOCRIT 37.9 % (36-46); HEMOGLOBIN 12.5 g/dL (12.0-16.0); LYMPHOCYTES # (AUTO) 2.1 K/uL (1.0-4.8); LYMPHOCYTES % (AUTO) 31.7 % (22.0-44.0); MEAN CORPUSCULAR HEMOGLOBIN 28.3 pg (26.0-34.0); MEAN CORPUSCULAR HGB CONC 32.8 G/dL (31.0-37.0); MEAN CORPUSCULAR VOLUME 86 fL (80-100); MONOCYTES # (AUTO) 0.3 K/uL (0.1-1.0); MONOCYTES % (AUTO) 4.7 % (2.0-9.0); NEUTROPHILS % (AUTO) 61.4 % (40.0-70.0); PLATELET COUNT (AUTO) 289 K/uL (150-450); RED BLOOD CELL COUNT(AUTO) 4.39 MIL/uL (4.00-5.20); RED CELL DISTRIBUTION WIDTH 14.4 % (11.5-14.5); WHITE BLOOD COUNT (AUTO) 6.5 K/uL (4.5-11.0)
[2025-01-06 08:07] LABS: ANION GAP 10 mmol/L (8-16); CALCIUM, TOTAL 8.7 mg/dL (8.8-10.5); CARBON DIOXIDE 25 mmol/L (22-29); CHLORIDE 105 mmol/L (98-107); CREATININE 0.86 mg/dL (0.60-1.30); GLOMERULAR FILTR. RATE CALC > 60 mL/min (>60); GLUCOSE,RANDOM 101 mg/dL (70-110); POTASSIUM 3.6 mmol/L (3.5-5.1); SODIUM SERUM 140 mmol/L (136-145); UREA NITROGEN, BLOOD 12 mg/dL (7-18)
[2025-01-06 08:13] LABS: ALBUMIN 3.4 g/dL (3.4-5.0); BILIRUBIN,DIRECT 0.1 mg/dL (0.00-0.20); BILIRUBIN,TOTAL 0.2 mg/dL (0.1-1.0); TOTAL PROTEIN, SERUM 6.9 g/dL (6.4-8.2)
[2025-01-06] MEDS: MAG HYDROX/ALUMINUM HYD/SIMETH 30 ML SUSPENSION UDCUP PO ONE (08:23)
[2025-01-06] MEDS: ONDANSETRON HCL 4 MG/2 ML VIAL IVP ONE (08:23)
[2025-01-06] MEDS: FAMOTIDINE 20 MG/2 ML VIAL IVP ONE (08:24)
[2025-01-06] MEDS: KETOROLAC TROMETHAMINE 30 MG/ML VIAL IVP ONE (08:24)
[2025-01-06] MEDS: SODIUM CHLORIDE 0.9% 1,000 ML IV ONE (08:25)
[2025-01-06 09:39] LABS: APPEARANCE,URINE CLEAR (CLEAR); BILIRUBIN,URINE NEGATIVE (NEGATIVE); COLOR,URINE COLORLESS (YELLOW); GLUCOSE, URINE (UA) NEGATIVE (NEGATIVE); KETONES,URINE NEGATIVE (NEGATIVE); LEUKOCYTE ESTERASE ,URINE NEGATIVE (NEGATIVE); NITRATE,URINE NEGATIVE (NEGATIVE); OCCULT BLOOD,URINE NEGATIVE (NEGATIVE); PROTEIN,URINE NEGATIVE (NEGATIVE); UROBILINOGEN,URINE <=1.0 mg/dL (<=1.0)
[2025-01-06] MEDS ORDERED: ONDA-104 PO (09:47)
[2025-01-06 10:05] VITALS: BP 127/83; PULSE 94; RESP 16; O2SAT 99
== END 2025-01-06 10:13 | disposition home or self-care (01) ==
LOC: EMS 07:20
DX: R11.2 Nausea with vomiting, unspecified (principal); R10.31 Right lower quadrant pain; F20.9 Schizophrenia, unspecified; R10.33 Periumbilical pain; F15.90 Other stimulant use, unspecified, uncomplicated; Z86.73 Personal history of transient ischemic attack (TIA), and cerebral infarction without residual deficits; Z88.0 Allergy status to penicillin; Z88.5 Allergy status to narcotic agent; Z88.2 Allergy status to sulfonamides; Z87.891 Personal history of nicotine dependence; Z79.899 Other long term (current) drug therapy
CPT/HCPCS: 99285; 74177; 96374; 96375; 80048; 80076; 81003; 83690; 84703; 85025; 36415; J1885; Q9967; J3490; J2405; J7030; J7050

== ENCOUNTER 2025-02-26 12:39 | Emergency (ER) | payer MEDICAID, OTHER ==
[~2025-02-26] VITALS: Ht 157.5 cm; Wt 77.2 kg
[~2025-02-26 12:39] MED LIST changes: -CIPR250T6 PO; +LEVO250T75 PO; +PALI156D IM; -PALI234D IM; +SERT-158 PO
[2025-02-26 12:51] VITALS: TEMP 97.7
[2025-02-26 13:25] LABS: PLATELET COUNT (AUTO) 274 K/uL (150-450); RED BLOOD CELL COUNT(AUTO) 4.39 MIL/uL (4.00-5.20); RED CELL DISTRIBUTION WIDTH 14.9 % (11.5-14.5); WHITE BLOOD COUNT (AUTO) 5.3 K/uL (4.5-11.0)
[2025-02-26 13:42] LABS: CALCIUM, TOTAL 8.7 mg/dL (8.8-10.5); CREATININE 0.86 mg/dL (0.60-1.30); GLOMERULAR FILTR. RATE CALC > 60 mL/min (>60); GLUCOSE,RANDOM 68 mg/dL (70-110); SODIUM SERUM 141 mmol/L (136-145); UREA NITROGEN, BLOOD 13 mg/dL (7-18)
[2025-02-26 13:50] LABS: ASPARTATE AMINOTRANSFERASE 18 U/L (15-37); HCG,QUANTITATIVE 7 mIU/mL (0-6); TOTAL PROTEIN, SERUM 6.7 g/dL (6.4-8.2)
[2025-02-26 14:22] LABS: APPEARANCE,URINE CLEAR (CLEAR); GLUCOSE, URINE (UA) NEGATIVE (NEGATIVE); LEUKOCYTE ESTERASE ,URINE TRACE (NEGATIVE); NITRATE,URINE NEGATIVE (NEGATIVE); OCCULT BLOOD,URINE NEGATIVE (NEGATIVE); SPECIFIC GRAVITIY, URINE 1.018 (1.003-1.030)
[2025-02-26 14:33] LABS: SQUAMOUS EPITHELIAL CELL,UR Few /LPF (None Seen)
[2025-02-26] MEDS: SODIUM CHLORIDE 0.9% 1,000 ML IV ONE (16:12)
[2025-02-26] MEDS: MORPHINE SULFATE 2 MG/ML SYRINGE IVP ONE (16:12)
[2025-02-26] MEDS: FAMOTIDINE 20 MG/2 ML VIAL IVP ONE (18:30)
[2025-02-26 22:20] VITALS: BP 120/64; PULSE 72; RESP 18; O2SAT 98
== END 2025-02-26 22:48 | disposition home or self-care (01) ==
LOC: EMS 12:41
DX: K80.50 Calculus of bile duct without cholangitis or cholecystitis without obstruction (principal); R10.84 Generalized abdominal pain; F20.9 Schizophrenia, unspecified; F15.90 Other stimulant use, unspecified, uncomplicated; Z88.5 Allergy status to narcotic agent; Z88.2 Allergy status to sulfonamides; Z88.0 Allergy status to penicillin; Z86.73 Personal history of transient ischemic attack (TIA), and cerebral infarction without residual deficits; Z87.891 Personal history of nicotine dependence; Z79.899 Other long term (current) drug therapy
CPT/HCPCS: 99285; 96374; 76705; 96361; 96375; 80048; 80076; 81001; 83690; 84702; 85025; 36415; J3490; J2270; J7030

== ENCOUNTER 2025-03-08 06:36 | Emergency (ER) | payer OTHER ==
[~2025-03-08] VITALS: Ht 152.4 cm; Wt 68.2 kg
[2025-03-08 06:41] VITALS: TEMP 98.3
[2025-03-08] MEDS: MORPHINE SULFATE 4 MG/ML SYRINGE IVP ONE (07:31)
[2025-03-08] MEDS: SODIUM CHLORIDE 0.9% 1,000 ML IV ONE (07:31)
[2025-03-08] MEDS: ONDANSETRON HCL 4 MG/2 ML VIAL IVP ONE (07:31)
[2025-03-08 07:38] LABS: PLATELET COUNT (AUTO) 286 K/uL (150-450); RED BLOOD CELL COUNT(AUTO) 4.71 MIL/uL (4.00-5.20); RED CELL DISTRIBUTION WIDTH 14.5 % (11.5-14.5); WHITE BLOOD COUNT (AUTO) 6.4 K/uL (4.5-11.0)
[2025-03-08 07:42] LABS: CALCIUM, TOTAL 8.6 mg/dL (8.8-10.5); CREATININE 1.05 mg/dL (0.60-1.30); GLOMERULAR FILTR. RATE CALC 56 mL/min (>60); GLUCOSE,RANDOM 92 mg/dL (70-110); SODIUM SERUM 137 mmol/L (136-145); UREA NITROGEN, BLOOD 15 mg/dL (7-18)
[2025-03-08 07:50] LABS: ASPARTATE AMINOTRANSFERASE 18.0 U/L (15-37); TOTAL PROTEIN, SERUM 6.9 g/dL (6.4-8.2); TROPONIN I-HIGH SENSITIVITY Less Than 4 ng/L (<51)
[2025-03-08] MEDS: PB/HYOSCY/ATR/SCOP/LIDO/MAALOX 55 ML BOTTLE PO ONE (08:53)
[2025-03-08] MEDS ORDERED: ONDA-104 PO (08:55)
[2025-03-08] MEDS ORDERED: MAG30ORA11 PO (08:55)
[2025-03-08] MEDS ORDERED: ACET-66 PO (08:55)
[2025-03-08] MEDS ORDERED: OMEP-148 PO (08:55)
[2025-03-08 09:15] VITALS: BP 108/66; PULSE 85; RESP 18; O2SAT 98
== END 2025-03-08 09:17 | disposition home or self-care (01) ==
LOC: EMS 06:44
DX: K29.70 Gastritis, unspecified, without bleeding (principal); R10.13 Epigastric pain; F25.1 Schizoaffective disorder, depressive type; G40.409 Other generalized epilepsy and epileptic syndromes, not intractable, without status epilepticus; N89.8 Other specified noninflammatory disorders of vagina; Z90.49 Acquired absence of other specified parts of digestive tract; Z88.0 Allergy status to penicillin; Z88.5 Allergy status to narcotic agent; Z88.2 Allergy status to sulfonamides; Z79.02 Long term (current) use of antithrombotics/antiplatelets; Z86.73 Personal history of transient ischemic attack (TIA), and cerebral infarction without residual deficits; Z79.899 Other long term (current) drug therapy
CPT/HCPCS: 99285; 96374; 76705; 96361; 96375; 80048; 80076; 83690; 84484; 84702; 84703; 85025; 36415; 93005; J2270; J2405; J7030

== ENCOUNTER 2025-05-09 15:47 | Emergency (ER) | payer MEDICAID, OTHER ==
[~2025-05-09] VITALS: Ht 154.9 cm; Wt 68.2 kg
[~2025-05-09 15:47] MED LIST changes: -LEVO250T75 PO; -PALI156D IM; -SERT-158 PO
[2025-05-09 16:32] VITALS: BP 111/68; PULSE 111; RESP 16; TEMP 98.1; O2SAT 91
[2025-05-09 17:44] LABS: CALCIUM, TOTAL 8.7 mg/dL (8.8-10.5); CREATININE 0.79 mg/dL (0.60-1.30); GLOMERULAR FILTR. RATE CALC > 60 mL/min (>60); GLUCOSE,RANDOM 102 mg/dL (70-110); SODIUM SERUM 140 mmol/L (136-145); UREA NITROGEN, BLOOD 11 mg/dL (7-18)
[2025-05-09 17:50] LABS: CREATINE KINASE, TOTAL ONLY 85 U/L (26-192); PLATELET COUNT (AUTO) 281 K/uL (150-450); RED BLOOD CELL COUNT(AUTO) 4.85 MIL/uL (4.00-5.20); RED CELL DISTRIBUTION WIDTH 14.2 % (11.5-14.5); WHITE BLOOD COUNT (AUTO) 6.7 K/uL (4.5-11.0)
[2025-05-09 18:08] LABS: TROPONIN I-HIGH SENSITIVITY 4 ng/L (<51)
[2025-05-09] MEDS: KETOROLAC TROMETHAMINE 30 MG/ML VIAL IM ONE (18:19)
[2025-05-09] MEDS ORDERED: PRED-554 PO (19:07)
[2025-05-09] MEDS ORDERED: DIPH50CA39 PO (19:07)
== END 2025-05-09 19:33 | disposition home or self-care (01) ==
LOC: EMS 15:47
DX: S40.862A Insect bite (nonvenomous) of left upper arm, initial encounter (principal); R07.89 Other chest pain; R06.02 Shortness of breath; F20.9 Schizophrenia, unspecified; L29.9 Pruritus, unspecified; F15.90 Other stimulant use, unspecified, uncomplicated; N89.8 Other specified noninflammatory disorders of vagina; Z88.5 Allergy status to narcotic agent; Z86.73 Personal history of transient ischemic attack (TIA), and cerebral infarction without residual deficits; Z88.0 Allergy status to penicillin; Z88.2 Allergy status to sulfonamides; Z87.891 Personal history of nicotine dependence; Z79.899 Other long term (current) drug therapy; W57.XXXA Bitten or stung by nonvenomous insect and other nonvenomous arthropods, initial encounter; Y93.89 Activity, other specified; Y92.89 Other specified places as the place of occurrence of the external cause; Y99.8 Other external cause status
CPT/HCPCS: 99285; 71045; 80048; 82550; 83880; 84484; 84702; 85025; 36415; 93005; 96372; J1885; J7512

== ENCOUNTER 2025-05-19 16:31 | Emergency (ER) | payer OTHER ==
[~2025-05-19] VITALS: Ht 154.9 cm; Wt 68.1 kg
[~2025-05-19 16:31] MED LIST changes: +DIPH50CA39 PO; +PRED-554 PO
[2025-05-19 16:36] VITALS: BP 122/74; PULSE 80; RESP 18; TEMP 98.5; O2SAT 99
[2025-05-19] MEDS: BACITRACIN 28 GM OINTMENT TP ONE (17:14)
[2025-05-19] MEDS: ONDANSETRON 4 MG TABLET PO ONE (17:14)
== END 2025-05-19 17:18 | disposition home or self-care (01) ==
LOC: EMS 16:31
DX: S90.512A Abrasion, left ankle, initial encounter (principal); F20.9 Schizophrenia, unspecified; F15.90 Other stimulant use, unspecified, uncomplicated; Z86.73 Personal history of transient ischemic attack (TIA), and cerebral infarction without residual deficits; Z98.890 Other specified postprocedural states; Z88.0 Allergy status to penicillin; Z88.2 Allergy status to sulfonamides; Z87.891 Personal history of nicotine dependence; Z88.5 Allergy status to narcotic agent; Z79.899 Other long term (current) drug therapy; W57.XXXA Bitten or stung by nonvenomous insect and other nonvenomous arthropods, initial encounter; Y93.89 Activity, other specified; Y92.89 Other specified places as the place of occurrence of the external cause; Y99.8 Other external cause status
CPT/HCPCS: 99284; Q0162

== ENCOUNTER 2025-06-19 16:18 | Emergency (ER) | payer OTHER ==
[~2025-06-19] VITALS: Ht 154.9 cm; Wt 37.4 kg
[~2025-06-19 16:18] MED LIST changes: -DIPH50CA39 PO; -PRED-554 PO
[2025-06-19 16:27] VITALS: TEMP 98.2
[2025-06-19 16:45] LABS: APPEARANCE,URINE CLEAR (CLEAR); GLUCOSE, URINE (UA) NEGATIVE (NEGATIVE); LEUKOCYTE ESTERASE ,URINE TRACE (NEGATIVE); NITRATE,URINE NEGATIVE (NEGATIVE); OCCULT BLOOD,URINE NEGATIVE (NEGATIVE); SPECIFIC GRAVITIY, URINE 1.011 (1.003-1.030)
[2025-06-19 16:46] LABS: HCG,QUAL URINE NEGATIVE (NEGATIVE)
[2025-06-19 16:56] LABS: SQUAMOUS EPITHELIAL CELL,UR Few /LPF (None Seen)
[2025-06-19 17:02] LABS: PLATELET COUNT (AUTO) 309 K/uL (150-450); RED BLOOD CELL COUNT(AUTO) 4.57 MIL/uL (4.00-5.20); RED CELL DISTRIBUTION WIDTH 13.8 % (11.5-14.5); WHITE BLOOD COUNT (AUTO) 7.8 K/uL (4.5-11.0)
[2025-06-19] MEDS: ONDANSETRON HCL 4 MG/2 ML VIAL IVP ONE (17:08)
[2025-06-19] MEDS: KETOROLAC TROMETHAMINE 30 MG/ML VIAL IVP ONE (17:08)
[2025-06-19] MEDS: SODIUM CHLORIDE 0.9% 1,000 ML IV ONE (17:14)
[2025-06-19 17:17] LABS: CALCIUM, TOTAL 8.8 mg/dL (8.8-10.5); CREATININE 1.02 mg/dL (0.60-1.30); GLOMERULAR FILTR. RATE CALC 58 mL/min (>60); GLUCOSE,RANDOM 85 mg/dL (70-110); SODIUM SERUM 138 mmol/L (136-145); UREA NITROGEN, BLOOD 11 mg/dL (7-18)
[2025-06-19 17:19] LABS: ASPARTATE AMINOTRANSFERASE 31.0 U/L (15-37); TOTAL PROTEIN, SERUM 7.3 g/dL (6.4-8.2)
[2025-06-19 17:25] LABS: TROPONIN I-HIGH SENSITIVITY 5 ng/L (<51)
[2025-06-19 18:46] VITALS: BP 144/80; PULSE 98; RESP 16; O2SAT 99
[2025-06-19] MEDS ORDERED: IBUP-1554 PO (19:02)
[2025-06-19] MEDS ORDERED: POLY119P3 PO (19:02)
[2025-06-19] MEDS ORDERED: NITR-104 PO (19:02)
[2025-06-19] MEDS ORDERED: ACET-66 PO (19:02)
[2025-06-19] MEDS ORDERED: GYNEVAG VG (19:02)
[2025-06-19] MEDS ORDERED: ONDA-104 PO (19:04)
== END 2025-06-19 19:16 | disposition home or self-care (01) ==
LOC: EMS 16:18
DX: K59.00 Constipation, unspecified (principal); R10.9 Unspecified abdominal pain; N39.0 Urinary tract infection, site not specified; F20.9 Schizophrenia, unspecified; F32.A Depression, unspecified; F17.210 Nicotine dependence, cigarettes, uncomplicated; F15.90 Other stimulant use, unspecified, uncomplicated; Z88.0 Allergy status to penicillin; Z88.1 Allergy status to other antibiotic agents; Z88.2 Allergy status to sulfonamides; Z88.5 Allergy status to narcotic agent; Z86.73 Personal history of transient ischemic attack (TIA), and cerebral infarction without residual deficits; Z98.890 Other specified postprocedural states; Z79.899 Other long term (current) drug therapy
CPT/HCPCS: 99285; 74176; 96374; 76705; 96361; 96375; 80048; 80076; 81001; 83690; 84484; 84703; 85025; 36415; 93005; J1885; J2405; J7030